=== PATIENT | female | born 1980 | race Caucasian/White ===

== ENCOUNTER 2017-08-02 16:37 | Inpatient (IN) | payer MEDICAID ==
[2017-08-02] MEDS ORDERED: Sodium Chloride 0.9% 1,000 ML IV STA (17:41)
[2017-08-02 18:17] LABS: SQUAMOUS EPITHIAL 5 /hpf (0-5); URINE BACTERIA MOD (<OCC); URINE BILIRUBIN NEGATIVE (NEGATIVE); URINE BLOOD LARGE (NEGATIVE); URINE CLARITY CLOUDY (Clear); URINE COLOR YELLOW (YELLOW); URINE GLUCOSE (UA) NEG (Normal); URINE LEUKOCYTE ESTERASE LARGE Leu/uL (Negative); URINE PROTEIN NEGATIVE (NEGATIVE); URINE UROBILINOGEN 0.2-1.0 mg/dL (0.2-1.0)
[2017-08-02 18:34] LABS: BASO % 0.5 % (0.0-2.0); EOS % 0.2 % (0.0-4.0); HEMOGLOBIN 13.1 g/dL (12.0-16.0); LYMPH # 1.4 K/uL (1.0-4.3); LYMPH % 13.4 % (20.0-40.0); MEAN CELL VOLUME 97.6 fl (81.0-99.0); MEAN CORPUSCULAR HEMOGLOBIN 33.4 pg (27.0-31.0); MEAN CORPUSCULAR HGB CONC 34.2 g/dL (33.0-37.0); MEAN PLATELET VOLUME 10.4 fl (7.2-11.7); MONO # 1.2 K/uL (0.0-0.8); MONO % 11.3 % (0.0-10.0); NEUT # 7.9 K/uL (1.8-7.0); NEUT % 74.6 % (50.0-75.0); NRBC % 0.1 % (0.0-0.0); RBC 3.93 Mil/uL (3.80-5.20); RED CELL DISTRIBUTION WIDTH 12.7 % (11.5-14.5); WHITE BLOOD COUNT 10.5 K/uL (4.8-10.8)
[2017-08-02 18:37] LABS: VENOUS BLOOD GAS BASE EXCESS 4.4 mmol/L (0.0-2.0); VENOUS BLOOD GAS PCO2 43 mmHg (40-60); VENOUS BLOOD GAS PO2 13 mm/Hg (30-55); VENOUS BLOOD PH 7.44 (7.32-7.43)
[2017-08-02 18:40] LABS: INR 1.2 (0.9-1.2); PARTIAL THROMBOPLASTIN TIME 28.4 Seconds (25.6-37.1); PROTHROMBIN TIME 13.1 Seconds (9.8-13.1)
--- NOTE | 2017-08-02 18:44 | ED PDOC ---
HPI: Female Pain Time Seen by Provider: 08/02/17 17:39 Chief Complaint (Nursing): Female Genitourinary Chief Complaint (Provider): Abdominal Pain History Per: Patient History/Exam Limitations: no limitations Onset/Duration Of Symptoms: Days (x2 weeks abdominal pain) Current Symptoms Are (Timing): Still Present Additional Complaint(s): 37 year old female presents to the emergency department complaining of crampy, diffuse abdominal pain onset two weeks with non bloody non bilious vomiting and non bloody diarrhea onset five days. She reports for the past two days, she was unable to eat or drink, and as of yesterday, feeling feverish associated with a cough. Also, the patient states having bilateral flank pain and body aches. She notes that two weeks ago, she was diagnosed with a urinary tract infection, to which she took two rounds of Tindamaxx for due to persisting symptoms. 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 PMD: Sruthi Landa Past Medical History Reviewed: Historical Data, Nursing Documentation, Vital Signs Vital Signs: Last Vital Signs Temp 102 F H 08/02/17 18:12 Pulse 114 H 08/02/17 17:08 Resp 18 08/02/17 17:08 BP 116/79 08/02/17 17:08 Pulse Ox 99 08/02/17 17:08 - Medical History PMH: No Chronic Diseases - Surgical History Surgical History: No Surg Hx - Family History Family History: States: No Known Family Hx - Social History Current smoker - smoking cessation education provided: No Alcohol: Occasional Drugs: Denies - Home Medications Home Medications: Ambulatory Orders Medication Instructions Recorded No Known Home Med 08/02/17 - Allergies Allergies/Adverse Reactions: Allergies Allergy/AdvReac Type Severity Reaction Status Date / Time No Known Allergies Allergy Verified 08/02/17 17:08 Review of Systems ROS Statement: Except As Marked, All Systems Reviewed And Found Negative Constitutional: Positive for: Fever, Other (body aches) ENT: Negative for: Nose Discharge, Throat Pain Respiratory: Positive for: Cough Gastrointestinal: Positive for: Vomiting (non bloody non bilious), Abdominal Pain (crampy and diffuse), Diarrhea (non bloody), Other (loss of appetite) Genitourinary Female: Negative for: Vaginal Discharge, Vaginal Bleeding, Rash, Other (swelling) Musculoskeletal: Positive for: Other (flank pain bilaterally) Physical Exam - Reviewed Nursing Documentation Reviewed: Yes Vital Signs Reviewed: Yes - Physical Exam Appears: Positive for: Non-toxic, In Acute Distress (painful; febrile) Head Exam: Positive for: ATRAUMATIC, NORMOCEPHALIC Skin: Positive for: Warm, Dry Eye Exam: Positive for: EOMI, PERRL ENT: Positive for: Other (tacky mucous membranes) Neck: Positive for: Painless ROM, Supple Cardiovascular/Chest: Positive for: Tachycardia. Negative for: Murmur Respiratory: Positive for: Normal Breath Sounds. Negative for: Respiratory Distress Gastrointestinal/Abdominal: Positive for: Soft, Tenderness (mild diffuse to palpation). Negative for: Mass, Guarding, Rebound, Other (cazares's and mcburney 's tenderness) Back: Positive for: L CVA Tenderness, R CVA Tenderness. Negative for: Decreased ROM Extremity: Positive for: Normal ROM. Negative for: Deformity Lymphatic: Negative for: Adenopathy Neurologic/Psych: Positive for: Alert. Negative for: Motor/Sensory Deficits - Laboratory Results Result Diagrams: 08/02/17 18:28 08/02/17 18:28 - ECG O2 Sat by Pulse Oximetry: 99 (RA) Pulse Ox Interpretation: Normal Medical Decision Making Medical Decision Making: Time: 17:39 Initial Impression: fever, abdominal pain, vomiting / diarrhea DDx includes but is not limited to: sepsis, dehydration, gastroenteritis, c- diff colitis, cystitis, pyelonephritis Initial Plan: --Urinalysis --C Diff Toxin A B --Urine Culture --Stool Culture --Ova and Parasite Culture --Blood Culture --Zofran Inj 8mg IV --Tylenol 975mg PO --Sodium Chloride 0.9% 1000ml --Bentyl 20mg PO --Chest XR --PT / PTT --ED Urine / ED Urine dipstick --Phosphorus / Magnesium --Lipase --CMP --Abd / Pelvis IV contrast CT --VBG Shock Panel 18:50 Chest XR FINDINGS: LUNGS: No active pulmonary disease PLEURA: No significant pleural effusion identified, no pneumothorax apparent CARDIOVASCULAR: Normal OSSEOUS STRUCTURES: No significant abnormalities VISUALIZED UPPER ABDOMEN: Normal OTHER FINDINGS: None IMPRESSION: No active disease Labs c/w UTI. Pt with SIRS + UTI and therefore sepsis. However BP and lactic acid wnl. CT demonstrated bilateral pyelonephritis. In setting of failed outpatient management as well as sepsis, needs hospitalization for IV antibiotics to ensure course does not progress to severe sepsis. ELIZA pt and family findings and plan of care. [facility]. Scribe Attestation: Documented by Candace Umaña, acting as a scribe for Abby Moss MD Provider Scribe Attestation: All medical entries made by the Scribe were at my direction and personally dictated by me. I have reviewed the chart and agree that the record accurately reflects my personal performance of the history, physical exam, medical decision making, and the department course for this patient. I have also personally directed, reviewed, and agree with the discharge instructions and disposition. Disposition - Clinical Impression Clinical Impression: Pyelonephritis, Sepsis Discussed With : Eriberto Mancera Doctor Will See Patient In The: Hospital Counseled Patient/Family Regarding: Studies Performed, Diagnosis - Disposition Disposition Time: 21:00 Condition: FAIR - Pt Status Changed To: Hospital Disposition Of: Observation - POA Present On Arrival: None
--- NOTE | 2017-08-02 18:52 | RAD ---
HISTORY: Sepsis Patient COMPARISON: No prior. FINDINGS: LUNGS: No active pulmonary disease. PLEURA: No significant pleural effusion identified, no pneumothorax apparent. CARDIOVASCULAR: Normal. OSSEOUS STRUCTURES: No significant abnormalities. VISUALIZED UPPER ABDOMEN: Normal. OTHER FINDINGS: None. IMPRESSION: No active disease.
[2017-08-02 18:55] LABS: ALB/GLOB RATIO 1.2 (1.0-2.1); ALBUMIN 4.5 g/dL (3.5-5.0); BLOOD UREA NITROGEN 8 mg/dl (7-17); CALCIUM 9.4 mg/dL (8.4-10.2); GFR AFRICAN-AMERICAN > 60; GFR NON-AFRICAN AMERICAN > 60
[2017-08-02 18:56] LABS: ALT/SGPT 30 U/L (9-52); AST/SGOT 22 U/L (14-36); LIPASE 58 U/L (23-300)
[2017-08-02] MEDS ORDERED: Iohexol 300 100 ML IJ ONE (19:19)
[2017-08-02] MEDS ORDERED: Sodium Chloride 0.9% 100 ML ONE (19:19)
--- NOTE | 2017-08-02 20:45 | CT ---
EXAM: CT Abdomen and Pelvis With Intravenous Contrast EXAM DATE/TIME: 08/02/2017 6:20 PM CLINICAL HISTORY: 37 years old, female; Pain; Abdominal pain; Generalized; Patient HX: Patient C/O of crampy, diffuse abdominal pain onset for 2 weeks; Additional info: Abd pain and flank pain vomiting diarrhea TECHNIQUE: Axial computed tomography images of the abdomen and pelvis with intravenous contrast. All CT scans at this facility use one or more dose reduction techniques, viz.: automated exposure control; ma/kV adjustment per patient size (including targeted exams where dose is matched to indication; i.e. head); or iterative reconstruction technique. Coronal and sagittal reformatted images were created and reviewed. CONTRAST: 95 mL of OMNIPAQUE 300 administered intravenously. COMPARISON: There are no prior studies for comparison. FINDINGS: Lung bases: Heart size is normal. There is minimal dependent atelectasis at the ABDOMEN: Liver: unremarkable Gallbladder and bile ducts: unremarkable Pancreas: unremarkable Spleen: unremarkable Adrenals: unremarkable Kidneys and ureters: There are multiple small bilateral renal perfusion defects. There is no pelvocaliectasis. There is bilateral ureteral mucosal thickening and enhancement. Stomach and bowel: Stomach is incompletely distended. Rotation is normal. Small bowel is mildly distended with fluid and air. There is no obstruction. Ileocecal region is unremarkable. Appendix and terminal ileum are unremarkable. Colon is incompletely distended which limits evaluation. PELVIS: Appendix: See stomach and bowel Bladder: The bladder is partially distended. Reproductive: Uterus and adnexal structures are unremarkable. 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 ABDOMEN and PELVIS: Intraperitoneal space: There is no free air or free fluid. Bones/joints: There are no acute osseous abnormalities. There is partial sacralization of L5. Soft tissues: There is a very small fat containing umbilical hernia. Vasculature: Vascular structures are unremarkable. Lymph nodes: unremarkable IMPRESSION: Pyelonephritis/urinary tract infection Additional nonemergent findings as described above.
[2017-08-02] MEDS ORDERED: Lactated Ringer's 1,000 ML IV STA (21:10)
[2017-08-03] MEDS ORDERED: Oxycodone/Acetaminophen 5/325 mg Tab PO PRN (00:37)
[2017-08-03] MEDS: Sodium Chloride 0.45% 1,000 ML IV SCH ×3 (01:13→21:21)
[2017-08-03] MEDS ORDERED: Enoxaparin 40 mg Syringe SC SCH (09:00)
[2017-08-03] MEDS: Enoxaparin 40 mg Syringe SC SCH (12:24)
--- NOTE | 2017-08-03 18:01 | CARD ---
APPROVED REPORT EKG Measurement Heart [id number] <Conclusion> Normal sinus rhythm Possible Left atrial enlargement Borderline ECG
--- NOTE | 2017-08-03 23:59 | CP.PCM.HP ---
Past Patient History - Past Medical History & Family History Past Medical History?: No - Past Social History Alcohol: Occasional Drugs: Denies - CARDIAC Hx Cardiac Disorders: No - PULMONARY Hx Respiratory Disorders: No - NEUROLOGICAL Hx Neurological Disorder: No - HEENT Hx HEENT Problems: No - RENAL Hx Chronic Kidney Disease: No Other/Comment: history of UTI 2 weeks ago - ENDOCRINE/METABOLIC Hx Endocrine Disorders: No - HEMATOLOGICAL/ONCOLOGICAL Hx Blood Disorders: No - INTEGUMENTARY Hx Dermatological Problems: No - MUSCULOSKELETAL/RHEUMATOLOGICAL Hx Musculoskeletal Disorders: No Hx Falls: No - GASTROINTESTINAL Hx Gastrointestinal Disorders: No - GENITOURINARY/GYNECOLOGICAL Hx Genitourinary Disorders: Yes Hx Urinary Tract Infection: Yes (2 weeks ago) - PSYCHIATRIC Hx Psychophysiologic Disorder: No Hx Substance Use: No - SURGICAL HISTORY Hx Surgeries: No - ANESTHESIA Hx Anesthesia: No Meds Allergies/Adverse Reactions: Allergies Allergy/AdvReac Type Severity Reaction Status Date / Time No Known Allergies Allergy Verified 08/02/17 17:08 Results - Vital Signs Recent Vital Signs: Last Vital Signs Temp 100.9 F H 08/03/17 21:34 Pulse 89 08/03/17 21:34 Resp 20 08/03/17 21:34 BP 102/63 08/03/17 21:34 Pulse Ox 100 08/03/17 21:34 - Labs Result Diagrams: 08/02/17 18:28 08/02/17 18:28 Labs: Laboratory Results - last 24 hr 08/02/17 19:00 C. difficile Ag & Toxin Negative
[2017-08-04] MEDS: Enoxaparin 40 mg Syringe SC SCH (11:23)
[2017-08-04 21:08] VITALS: O2SAT 99
[2017-08-05 10:15] VITALS: BP 108/62; PULSE 81; RESP 16; TEMP 98.4
[2017-08-05] MEDS: Enoxaparin 40 mg Syringe SC SCH (11:42)
--- NOTE | 2017-08-05 15:39 | CP.PCM.DIS ---
Provider - Provider Date of Admission: 08/04/17 15:51 Attending physician: Eriberto Mancera MD Time Spent in preparation of Discharge (in minutes): 35 Diagnosis - Discharge Diagnosis (1) Acute pyelonephritis Status: Acute Priority: High Hospital Course - Lab Results Lab Results: Micro Results 08/02/17 19:13 Stool Stool Culture - Final NO SALMONELLA, SHIGELLA OR CAMPYLOBACTER ISOLATED. 08/02/17 18:08 Urine,Clean Catch Urine Culture - Final Escherichia Coli 08/02/17 18:25 Blood Blood Culture - Preliminary NO GROWTH AFTER 48 HOURS 08/02/17 18:10 Blood Blood Culture - Preliminary NO GROWTH AFTER 48 HOURS 08/02/17 19:00 Stool Ova and Parasite Concentrate Exam - Final Most Recent Lab Values WBC 10.5 K/uL (4.8-10.8) 08/02/17 18:28 RBC 3.93 Mil/uL (3.80-5.20) 08/02/17 18:28 Hgb 13.1 g/dL (12.0-16.0) 08/02/17 18:28 Hct 38.3 % (34.0-47.0) 08/02/17 18:28 MCV 97.6 fl (81.0-99.0) 08/02/17 18:28 MCH 33.4 pg (27.0-31.0) H 08/02/17 18:28 MCHC 34.2 g/dL (33.0-37.0) 08/02/17 18:28 RDW 12.7 % (11.5-14.5) 08/02/17 18:28 Plt Count 194 K/uL (130-400) 08/02/17 18:28 MPV 10.4 fl (7.2-11.7) 08/02/17 18:28 Neut % (Auto) 74.6 % (50.0-75.0) 08/02/17 18:28 Lymph % (Auto) 13.4 % (20.0-40.0) L 08/02/17 18:28 [place] % (Auto) 11.3 % (0.0-10.0) H 08/02/17 18:28 Eos % (Auto) 0.2 % (0.0-4.0) 08/02/17 18:28 Baso % (Auto) 0.5 % (0.0-2.0) 08/02/17 18: Neut # (Auto) 7.9 K/uL (1.8-7.0) H 08/02/17 18: Lymph # (Auto) 1.4 K/uL (1.0-4.3) 08/02/17 18: [place] # (Auto) 1.2 K/uL (0.0-0.8) H 08/02/17 18: Eos # (Auto) 0.0 K/uL (0.0-0.7) 08/02/17 18: Baso # (Auto) 0.0 K/uL (0.0-0.2) 08/02/17 18: PT 13.1 Seconds (9.8-13.1) 08/02/17: INR 1.2 (0.9-1.2) 08/02/17: APTT 28.4 Seconds (25.6-37.1) 08/02/17: pO2 13 mm/Hg (30-55) L 08/02/17 18:34 VBG pH 7.44 (7.32-7.43) H 08/02/17 18:34 VBG pCO2 43 mmHg (40-60) 08/02/17 18: VBG HCO3 26.2 mmol/L 08/02/17 18: VBG Total CO2 30.5 mmol/L (22-28) H 08/02/17 18:34 VBG O2 Sat (Calc) 20.6 % (40-65) L 08/02/17 18: VBG Base Excess 4.4 mmol/L (0.0-2.0) H 08/02/17 18: VBG Potassium 3.8 mmol/L (3.6-5.2) 08/02/17: Sodium 133.0 mmol/L (132-148) 08/02/17: Chloride 100.0 mmol/L (98-107) 08/02/17 18: Glucose 103 mg/dL (65-105) 08/02/17 18: Lactate 0.8 mmol/L (0.7-2.1) 08/02/17 18: FiO2 21.0 % 08/02/17 18: Sodium 135 mmol/l (132-148) 08/02/17 18: Potassium 4.0 MMOL/L (3.6-5.0) 08/02/17 18: Chloride 96 mmol/L (98-107) L 08/02/17 18: Carbon Dioxide 25 mmol/L (22-30) 08/02/17 18: Anion Gap 18 (10-20) 08/02/17 18: BUN 8 mg/dl (7-17) 08/02/17 18: Creatinine 0.8 mg/dl (0.7-1.2) 08/02/17 18: Est GFR ( Amer) > 60 08/02/17 18: Est GFR (Non-Af Amer) > 60 08/02/17 18: Random Glucose 105 mg/dL (65-105) 08/02/17 18: Calcium 9.4 mg/dL (8.4-10.2) 08/02/17: Phosphorus 2.0 mg/dl (2.5-4.5) L 08/02/17: Magnesium 2.1 MG/DL (1.6-2.3) 08/02/17 18: Total Bilirubin 0.5 mg/dl (0.2-1.3) 08/02/17 18: AST 22 U/L (14-36) 08/02/17 18: ALT 30 U/L (9-52) 08/02/17 18: Alkaline Phosphatase 53 U/L (38-126) 08/02/17 18: Total Protein 8.3 G/DL (6.3-8.2) H 08/02/17 18: Albumin 4.5 g/dL (3.5-5.0) 08/02/17 18: Globulin 3.8 gm/dL (2.2-3.9) 08/02/17 18: Albumin/Globulin Ratio 1.2 (1.0-2.1) 08/02/17 18: Lipase 58 U/L (23-300) 08/02/17 18: Venous Blood Potassium 3.8 mmol/L (3.6-5.2) 08/02/17 18:34 Urine Color Yellow (YELLOW) 08/02/17 18:08 Urine Clarity Cloudy (Clear) 08/02/17 18:08 Urine pH 8.0 (5.0-8.0) 08/02/17 18:08 Ur Specific Blossom < 1.005 (1.003-1.030) 08/02/17 18:08 Urine Protein Negative mg/dL (NEGATIVE) 08/02/17 18:08 Urine Glucose (UA) Neg mg/dL (Normal) 08/02/17 18:08 Urine Ketones Negative mg/dL (NEGATIVE) 08/02/17 18:08 Urine Blood Large (NEGATIVE) 08/02/17 18:08 Urine Nitrate Negative (NEGATIVE) 08/02/17 18:08 Urine Bilirubin Negative (NEGATIVE) 08/02/17 18:08 Urine Urobilinogen 0.2-1.0 mg/dL (0.2-1.0) 08/02/17 18:08 Ur Leukocyte Esterase Large Constance/uL (Negative) 08/02/17 18:08 Urine RBC (Auto) 15 /hpf (0-3) H 08/02/17 18:08 Urine Microscopic WBC 62 /hpf (0-5) H 08/02/17 18:08 Ur Squamous Epith Cells 5 /hpf (0-5) 08/02/17 18:08 Urine Bacteria Mod (<OCC) H 08/02/17 18:08 C. difficile Ag & Toxin Negative (NEGATIVE) 08/02/17 19:00 Discharge Exam - Head Exam Head Exam: ATRAUMATIC, NORMOCEPHALIC - Eye Exam Eye Exam: EOMI, Normal appearance, PERRL Pupil Exam: NORMAL ACCOMODATION, PERRL - Respiratory Exam Respiratory Exam: Clear to PA & Lateral, NORMAL BREATHING PATTERN - Cardiovascular Exam Cardiovascular Exam: REGULAR RHYTHM, +S1, +S2 - GI/Abdominal Exam GI & Abdominal Exam: Normal Bowel Sounds - Extremities Exam Extremities exam: full ROM, joint swelling, normal capillary refill - Back Exam Back exam: FULL ROM, NORMAL INSPECTION - Neurological Exam Neurological exam: Alert, CN II-XII Intact, Normal Gait, Oriented x3, Reflexes Normal - Psychiatric Exam Psychiatric exam: Normal Affect, Normal Mood - Skin Skin Exam: Dry, Intact, Normal Color, Warm Discharge Plan - Discharge Medications Prescriptions: Lactobacillus Acidophilus [Bacid Acidophilus] 2 cap PO DAILY #30 cap Ciprofloxacin [Cipro] 500 mg PO Q12 #24 tab - Follow Up Plan Condition: GOOD Disposition: HOME/ ROUTINE Instructions: Kidney Infection, How to Wash Your Hands Properly, Urinary Tract Infection, Adult (DC)
--- NOTE | 2017-08-05 15:39 | CP.PCM.PN ---
Subjective - Date & Time of Evaluation Date of Evaluation: 08/04/17 Time of Evaluation: 18:25 - Subjective Subjective: Seen and examined at the bed side. The Urinary Symptoms has improved but still c /o left Flank pain, and frequency of urination. Denies fever or chills. Objective - Vital Signs/Intake and Output Vital Signs (last 24 hours): Temp Pulse Resp BP Pulse Ox 98.4 F 81 16 108/62 99 08/05/17 09:00 08/05/17 09:00 08/05/17 09:00 08/05/17 09:00 08/05/17 09:00 - Medications Medications: Current Medications Acetaminophen (Tylenol 325mg Tab) 650 mg PO Q6 PRN PRN Reason: Pain, Mild (1-3) Last Admin: 08/03/17 21:24 Dose: 650 mg Enoxaparin Sodium (Lovenox) 40 mg SC DAILY@1200 KIERAN PRN Reason: Protocol Last Admin: 08/05/17 11:42 Dose: 40 mg Ceftriaxone Sodium 1 gm/ (Sodium Chloride) 100 mls @ 100 mls/hr IVPB DAILY@ 1200 KIERAN PRN Reason: Protocol Last Admin: 08/05/17 11:41 Dose: 100 mls/hr Ondansetron HCl (Zofran Odt) 4 mg PO Q6H PRN PRN Reason: Nausea/Vomiting Last Admin: 08/03/17 03:50 Dose: 4 mg Oxycodone/Acetaminophen (Percocet 5/325 Mg Tab) 1 tab PO Q4 PRN PRN Reason: Pain, severe (8-10) Stop: 08/06/17 00:38 - Labs Labs: 08/02/17 18:28 08/02/17 18:28 PT 13.1 Seconds (9.8-13.1) 08/02/17 18:28 INR 1.2 (0.9-1.2) 08/02/17 18:28 APTT 28.4 Seconds (25.6-37.1) 08/02/17 18:28 - Constitutional Appears: Well - Head Exam Head Exam: ATRAUMATIC, NORMAL INSPECTION, NORMOCEPHALIC - Eye Exam Eye Exam: EOMI, Normal appearance, PERRL Pupil Exam: NORMAL ACCOMODATION, PERRL - ENT Exam ENT Exam: Mucous Membranes Moist, Normal Exam - Neck Exam Neck Exam: Full ROM, Normal Inspection. absent: Lymphadenopathy - Respiratory Exam Respiratory Exam: Clear to Ausculation Bilateral, NORMAL BREATHING PATTERN - Cardiovascular Exam Cardiovascular Exam: REGULAR RHYTHM, +S1, +S2. absent: Murmur - GI/Abdominal Exam GI & Abdominal Exam: Soft, Normal Bowel Sounds. absent: Tenderness - Extremities Exam Extremities Exam: Full ROM, Normal Capillary Refill, Normal Inspection. absent : Joint Swelling, Pedal Edema - Back Exam Back Exam: CVA tenderness (L), NORMAL INSPECTION. absent: CVA tenderness (R) - Neurological Exam Neurological Exam: Alert, Awake, CN II-XII Intact, Normal Gait, Oriented x3 - Psychiatric Exam Psychiatric exam: Normal Affect, Normal Mood - Skin Skin Exam: Dry, Intact, Normal Color, Warm Assessment and Plan (1) Acute pyelonephritis Assessment & Plan: Urine Culture growing E. coli with no sensitvity. Continue IVF & IV Rocephin Tylenol PRN Status: Acute (2) DVT (deep venous thrombosis) Status: Inactive
== END 2017-08-05 16:15 | disposition home or self-care (01) | DRG 321 ==
LOC: H.ER 16:37 → H.ERHOLD 21:19 → H.PEDS 08-03 09:37 → OBSVTOIN 08-04 15:51
PROVIDERS: ADMIT Internal Medicine; ATTEND Internal Medicine
DX: N10 Acute pyelonephritis (principal); B96.20 Unspecified Escherichia coli [E. coli] as the cause of diseases classified elsewhere; Z87.440 Personal history of urinary (tract) infections